=== PATIENT | male | born 1960 | race Hispanic/Latino ===

== ENCOUNTER 2018-05-25 08:13 | Emergency (ER) | payer OTHER ==
--- NOTE | 2018-05-25 08:35 | EDPHYS ---
Physician Documentation [facility] Name: Colton Huang Age: 58 yrs Sex: Male : 1960 Arrival Date: 05/25/2018 Time: 08:19 Bed 16 Private MD: None, None ED Physician Crow Dowling HPI: 05/25 08:30 This 58 yrs old Male presents to ER via Ambulatory with complaints of Arm jmm Pain, Back Pain. 08:30 The patient or guardian complains of pain, a rash. The complaints affect the posterior jmm aspect of left shoulder. Onset: The symptoms/episode began/occurred gradually, 4 day(s) ago. Associated signs and symptoms: Pertinent positives: pain, Pertinent negatives: fever. The patient has not experienced similar symptoms in the past. This is a 58 year old male with a history of htn that presents to the ED with left upper back/shoulder pain beginning approx 4 days ago. Patient denies fever, denies chest pain or shortness of breath. . Historical: - Allergies: 08:25 No Known Allergies; rb1 - Home Meds: 08:25 lovastatin 20 mg Oral tab [Active]; losartan 50 mg oral tab 1 tab once daily [Active]; rb1 - PMHx: 08:25 Diabetes - NIDDM; Hyperlipidemia; Hypertension; rb1 - PSHx: 08:25 Appendectomy; rb1 - Immunization history:: Adult Immunizations up to date. - Social history:: Smoking status: Patient uses tobacco products, chewing tobacco. - Ebola Screening: : Patient negative for fever greater than or equal to 101.5 degrees Fahrenheit, and additional compatible Ebola Virus Disease symptoms. ROS: 08:30 Constitutional: Negative for fever, chills, and weight loss, Cardiovascular: Negative jmm for chest pain, palpitations, and edema, Respiratory: Negative for shortness of breath, cough, wheezing, and pleuritic chest pain. 08:30 Skin: Positive for rash. 08:30 Neuro: Negative for weakness. 08:30 All other systems are negative. Exam: 08:30 Constitutional: This is a well developed, well nourished patient who is awake, alert, jmm and in no acute distress. Head/Face: atraumatic. Chest/axilla: Normal chest wall appearance and motion. Cardiovascular: Regular rate and rhythm. No edema appreciated Respiratory: Normal respirations, no respiratory distress appreciated Back: Normal ROM 08:30 Skin: vesicular lesions noted to the left upper back/posterior shoulder. . 08:30 Neuro: Orientation: is normal, Mentation: is normal, Memory: is normal, Gait: is steady. Vital Signs: 08:25 BP 148 / 90; Pulse 73; Resp 19; Temp 97.5(O); Pulse Ox 99% on R/A; Weight 111.58 kg rb1 (M); Height 5 ft. 10 in. (177.80 cm) (R); Pain 8/10; 08:25 Body Mass Index 35.30 (111.58 kg, 177.80 cm) rb1 MDM: 08:30 ED course: Patient's symptoms appear consistent with herpes zoster. Patient has no [facility] chest pain, shortness of breath, denies fever. Patient is alert and non toxic in appearance in the ED. Patient will be prescribed oral antiviral medication and is advised to follow up with his PCP. Patient understood and agrees with the plan of care. . 08:[address] [facility] 08:33 Data reviewed: vital signs, nurses notes. Counseling: I had a detailed discussion with edna the patient and/or guardian regarding: the historical points, exam findings, and any diagnostic results supporting the discharge/admit diagnosis, the need for outpatient follow up, to return to the emergency department if symptoms worsen or persist or if there are any questions or concerns that arise at home. Administered Medications: No medications were administered Disposition: 05/25/18 08:34 Discharged to Home. Impression: Zoster [herpes zoster]. - Condition is Stable. - Discharge Instructions: Shingles. - Prescriptions for Tylenol- Codeine #3 300-30 mg Oral Tablet - take 1 tablet by ORAL route every 6 hours As needed; 20 tablet. Valtrex 1 g Oral Tablet - take 1 tablet by ORAL route every 8 hours for 7 days; 21 tablet. - Work release form, Medication Reconciliation Form, Thank You Letter, Antibiotic Education, Prescription Opioid Use form. - Follow up: Private Physician; When: 2 - 3 days; Reason: Continuance of care. Addendum: 05/26/2018 21:27 Co-signature as Attending Physician, Crow chun a2 Signatures: Tono Jane PA PA jmm Barber, Rebecca RN RN rb1 Crow Dowling MD MD ma2 Corrections: (The following items were deleted from the chart) 05/25 08:50 08:34 05/25/2018 08:34 Discharged to Home. Impression: Zoster [herpes zoster]. rb1 Condition is Stable. Forms are Medication Reconciliation Form, Thank You Letter, Antibiotic Education, Prescription Opioid Use. Follow up: Private Physician; When: 2 - 3 days; Reason: Continuance of care. edna
--- NOTE | 2018-05-25 08:35 | ER ---
Nurse's Notes [facility] Name: Colton Huang Age: 58 yrs Sex: Male : 1960 Arrival Date: 05/25/2018 Time: 08:19 Bed 16 Private MD: None, None Diagnosis: Zoster [herpes zoster] Presentation: 05/25 08:25 Presenting complaint: Patient states: burning pain to L upper arm and axilla area that ss began 4-5 days ago. Transition of care: patient was not received from another setting of care. Onset of symptoms was May 21, 2018. Initial Sepsis Screen: Does the patient meet any 2 criteria? Does the patient have a suspected source of infection? No. Patient's initial sepsis screen is negative. Care prior to arrival: None. 08:25 Method Of Arrival: Ambulatory ss 08:25 Risk Assessment: Do you want to hurt yourself or someone else? Patient reports no rb1 desire to harm self or others. 08:25 Acuity: JAMIL 4 rb1 Triage Assessment: 08:25 General: Appears uncomfortable, obese, Behavior is calm, cooperative, Denies fever. rb1 Pain: Complains of pain in posterior aspect of left shoulder Pain currently is 8 out of 10 on a pain scale. Pain began May 21, 2018. Neuro: Level of Consciousness is awake, alert, obeys commands, Oriented to person, place, time, situation. Cardiovascular: Capillary refill < 3 seconds is brisk in bilateral fingers. Respiratory: Airway is patent Respiratory effort is even, unlabored, Respiratory pattern is regular, symmetrical. GI: No signs and/or symptoms were reported involving the gastrointestinal system. : No signs and/or symptoms were reported regarding the genitourinary system. Derm: Rash noted that is red, raised. Musculoskeletal: Range of motion: intact in all extremities. Historical: - Allergies: 08:25 No Known Allergies; rb1 - Home Meds: 08:25 lovastatin 20 mg Oral tab [Active]; losartan 50 mg oral tab 1 tab once daily [Active]; rb1 - PMHx: 08:25 Diabetes - NIDDM; Hyperlipidemia; Hypertension; rb1 - PSHx: 08:25 Appendectomy; rb1 - Immunization history:: Adult Immunizations up to date. - Social history:: Smoking status: Patient uses tobacco products, chewing tobacco. - Ebola Screening: : Patient negative for fever greater than or equal to 101.5 degrees Fahrenheit, and additional compatible Ebola Virus Disease symptoms. Screenin:25 Abuse screen: Denies threats or abuse. Nutritional screening: No deficits noted. rb1 Tuberculosis screening: No symptoms or risk factors identified. Fall Risk None identified. Assessment: 08:25 General: See triage assessment. Neuro: Level of Consciousness is awake, alert, obeys rb1 commands, Oriented to person, place, time, situation. Vital Signs: 08:25 BP 148 / 90; Pulse 73; Resp 19; Temp 97.5(O); Pulse Ox 99% on R/A; Weight 111.58 kg rb1 (M); Height 5 ft. 10 in. (177.80 cm) (R); Pain 8/10; 08:25 Body Mass Index 35.30 (111.58 kg, 177.80 cm) rb1 ED Course: 08:19 Patient arrived in ED. sb2 08:20 None, None is Private Physician. sb2 08:23 Mimi Butterfield, RN is Primary Nurse. rb1 08:24 Tono Jane PA is PHCP. [facility] 08:24 Crow Dowling MD is Attending Physician. [facility] 08:25 Arm band placed on right wrist. rb1 08:25 Patient has correct armband on for positive identification. Placed in gown. Bed in low rb1 position. Call light in reach. Side rails up X 1. Pulse ox on. NIBP on. 08:37 Triage completed. rb1 08:49 No provider procedures requiring assistance completed. Patient did not have IV access rb1 during this emergency room visit. Administered Medications: No medications were administered Outcome: 08:34 Discharge ordered by . [facility] 08:49 Discharged to home ambulatory. rb1 08:49 Condition: stable 08:49 Discharge instructions given to patient, Instructed on discharge instructions, follow up and referral plans. medication usage, Demonstrated understanding of instructions, follow-up care, medications, Prescriptions given X 2. 08:50 Patient left the ED. rb1 Signatures: Tono Jane PA PA jmm Smirch, Shelby, RN RN Mimi Butterfield, RN RN [facility] Arianna Marino sb2
[2018-05-25 08:54] VITALS: BP 148/90; TEMP 97.5; O2SAT 99
== END 2018-05-25 08:50 | disposition home or self-care (01) ==
LOC: ER 08:13
DX: B02.9 Zoster without complications (principal); E11.9 Type 2 diabetes mellitus without complications
CPT/HCPCS: 99283

== ENCOUNTER 2018-05-31 12:23 | Emergency (ER) | payer OTHER ==
--- NOTE | 2018-05-31 13:25 | EDPHYS ---
Physician Documentation [facility] Name: Colton Huang Age: 58 yrs Sex: Male : 1960 Arrival Date: 05/31/2018 Time: 12:26 Bed 9 Private MD: None, None ED Physician Charlie Gonzalez HPI: 05/31 15:03 This 58 yrs old Male presents to ER via Ambulatory with complaints of Shingles.jr8 15:03 Patient recently diagnosed with shingles about 1 week ago. Still having burning jr8 irritating pain that is not improving. Wants to know if there is anything else we can do for pain so he can go back to work . Severity of symptoms: At their worst the symptoms were mild in the emergency department the symptoms are unchanged. The patient has not experienced similar symptoms in the past. The patient has been recently seen by a physician:. Historical: - Allergies: 12:55 NKA; iw - PMHx: 12:55 Diabetes - NIDDM; Hyperlipidemia; Hypertension; iw - PSHx: 12:55 Appendectomy; iw - Immunization history:: Adult Immunizations unknown. - Ebola Screening: : Patient negative for fever greater than or equal to 101.5 degrees Fahrenheit, and additional compatible Ebola Virus Disease symptoms Patient denies exposure to infectious person Patient denies travel to an Ebola-affected area in the 21 days before illness onset No symptoms or risks identified at this time. - Social history:: Smoking status: unknown. ROS: 15:03 Eyes: Negative for injury, pain, redness, and discharge, ENT: Negative for injury, jr8 pain, and discharge, Neck: Negative for injury, pain, and swelling, Cardiovascular: Negative for chest pain, palpitations, and edema, Respiratory: Negative for shortness of breath, cough, wheezing, and pleuritic chest pain, Abdomen/GI: Negative for abdominal pain, nausea, vomiting, diarrhea, and constipation, Back: Negative for injury and pain, MS/Extremity: Negative for injury and deformity, Neuro: Negative for headache, weakness, numbness, tingling, and seizure. 15:03 Skin: Positive for rash. Exam: 15:03 Eyes: Pupils equal round and reactive to light, extra-ocular motions intact. Lids and jr8 lashes normal. Conjunctiva and sclera are non-icteric and not injected. Cornea within normal limits. Periorbital areas with no swelling, redness, or edema. ENT: Nares patent. No nasal discharge, no septal abnormalities noted. Tympanic membranes are normal and external auditory canals are clear. Oropharynx with no redness, swelling, or masses, exudates, or evidence of obstruction, uvula midline. Mucous membranes moist. Neck: Trachea midline, no thyromegaly or masses palpated, and no cervical lymphadenopathy. Supple, full range of motion without nuchal rigidity, or vertebral point tenderness. No Meningismus. Cardiovascular: Regular rate and rhythm with a normal S1 and S2. No gallops, murmurs, or rubs. Normal PMI, no JVD. No pulse deficits. Respiratory: Lungs have equal breath sounds bilaterally, clear to auscultation and percussion. No rales, rhonchi or wheezes noted. No increased work of breathing, no retractions or nasal flaring. Abdomen/GI: Soft, non-tender, with normal bowel sounds. No distension or tympany. No guarding or rebound. No evidence of tenderness throughout. Back: No spinal tenderness. No costovertebral tenderness. Full range of motion. MS/ Extremity: Pulses equal, no cyanosis. Neurovascular intact. Full, normal range of motion. Neuro: Awake and alert, GCS 15, oriented to person, place, time, and situation. Cranial nerves II-XII grossly intact. Motor strength 5/5 in all extremities. Sensory grossly intact. Cerebellar exam normal. Normal gait. 15:03 Skin: rash a mild rash is noted, rash can be described as vesicular, consistent with zoster, on the left lateral chest and back. Vital Signs: 12:55 BP 138 / 87; Pulse 62; Resp 16; Pulse Ox 96% ; iw MDM: 12:58 Patient medically screened. jr8 13:22 Data reviewed: vital signs, nurses notes, and as a result, I will discharge patient. jr8 Data interpreted: Pulse oximetry: on room air is 96 %. Interpretation: normal. Counseling: I had a detailed discussion with the patient and/or guardian regarding: the historical points, exam findings, and any diagnostic results supporting the discharge/admit diagnosis, the need for outpatient follow up, a family practitioner, to return to the emergency department if symptoms worsen or persist or if there are any questions or concerns that arise at home. 13:22 ED course: Detailed discussion with patient that what he is feeling is postherpetic jr8 neuralgia. Will put on gabapentin for pain. Will still need to f/u with doctor . Administered Medications: No medications were administered Disposition: 16:10 Co-signature as Attending Physician, Charlie Gonzalez MD. rn Disposition: 05/31/18 13:24 Discharged to Home. Impression: Postherpetic Neuragia . - Condition is Stable. - Discharge Instructions: Postherpetic Neuralgia. - Prescriptions for gabapentin 300 mg Oral capsule - take 1 capsule by ORAL route Day 1 then 1 capsule BID on day 2, then one one capsule TID for 2 weeks; 45 capsule. - Medication Reconciliation Form, Thank You Letter, Antibiotic Education, Prescription Opioid Use form. - Work release form (05/31/18 13:39). bd - Follow up: Private Physician; When: 10 - 14 days; Reason: Recheck today's complaints, Continuance of care, Re-evaluation by your physician. - Problem is new. - Symptoms have improved. Signatures: Trinity Tuttle RN RN iw Charlie Gonzalez MD MD rn Roszak, Josh, PA PA jr8 Danika Denis bd Corrections: (The following items were deleted from the chart) 13:36 13:24 05/31/2018 13:24 Discharged to Home. Impression: Postherpetic Neuragia . iw Condition is Stable. Forms are Medication Reconciliation Form, Thank You Letter, Antibiotic Education, Prescription Opioid Use. Follow up: Private Physician; When: 10 - 14 days; Reason: Recheck today's complaints, Continuance of care, Re-evaluation by your physician. Problem is new. Symptoms have improved. jr8
--- NOTE | 2018-05-31 13:25 | ER ---
Nurse's Notes [facility] Name: Colton Huang Age: 58 yrs Sex: Male : 1960 Arrival Date: 05/31/2018 Time: 12:26 Bed 9 Private MD: None, None Diagnosis: Postherpetic Neuragia Presentation: 05/31 12:55 Presenting complaint: Patient states: shingles to left shoulder, started last iw Saturday. Transition of care: patient was not received from another setting of care. Onset of symptoms was May 2018. Risk Assessment: Do you want to hurt yourself or someone else? Patient reports no desire to harm self or others. Initial Sepsis Screen: Does the patient meet any 2 criteria? No. Patient's initial sepsis screen is negative. Does the patient have a suspected source of infection? No. Patient's initial sepsis screen is negative. Care prior to arrival: None. 12:55 Method Of Arrival: Ambulatory iw 12:55 Acuity: JAMIL 4 iw Historical: - Allergies: 12:55 NKA; iw - PMHx: 12:55 Diabetes - NIDDM; Hyperlipidemia; Hypertension; iw - PSHx: 12:55 Appendectomy; iw - Immunization history:: Adult Immunizations unknown. - Ebola Screening: : Patient negative for fever greater than or equal to 101.5 degrees Fahrenheit, and additional compatible Ebola Virus Disease symptoms Patient denies exposure to infectious person Patient denies travel to an Ebola-affected area in the 21 days before illness onset No symptoms or risks identified at this time. - Social history:: Smoking status: unknown. Screenin:06 Abuse screen: Denies threats or abuse. Denies injuries from another. Nutritional iw screening: No deficits noted. Tuberculosis screening: No symptoms or risk factors identified. Fall Risk None identified. Assessment: 13:06 General: Appears in no apparent distress. Behavior is calm, cooperative. Pain: iw Complains of pain in anterior aspect of left shoulder and posterior aspect of left shoulder. Neuro: Level of Consciousness is awake, alert, obeys commands, Oriented to person, place, time, situation. 13:24 Derm: Rash noted that is on left arm and posterior aspect of left shoulder and anterior iw aspect of left shoulder. Vital Signs: 12:55 BP 138 / 87; Pulse 62; Resp 16; Pulse Ox 96% ; iw ED Course: 12:26 Patient arrived in ED. mr 12:26 None, None is Private Physician. mr 12:55 Triage completed. iw 12:58 [facility] jr8 12:58 Charlie Gonzalez MD is Attending Physician. jr8 13:05 Trinity Tuttle, RN is Primary Nurse. iw 13:07 Patient has correct armband on for positive identification. iw 13:08 Arm band placed on. iw 13:35 No provider procedures requiring assistance completed. Patient did not have IV access iw during this emergency room visit. Administered Medications: No medications were administered Outcome: 13:24 Discharge ordered by . jr8 13:35 Discharged to home ambulatory. iw 13:35 Condition: good 13:35 Discharge instructions given to patient, Instructed on discharge instructions, follow up and referral plans. medication usage, Demonstrated understanding of instructions, follow-up care, medications, Prescriptions given X 1. 13:36 Patient left the ED. iw Signatures: Myranda Guthrie mr Trinity Tuttle, RN RN iw Robbie Diaz PA PA jr8
[2018-05-31 13:40] VITALS: BP 138/87; O2SAT 96
== END 2018-05-31 13:36 | disposition home or self-care (01) ==
LOC: ER 12:23
DX: B02.29 Other postherpetic nervous system involvement (principal); E11.9 Type 2 diabetes mellitus without complications; E78.5 Hyperlipidemia, unspecified; I10 Essential (primary) hypertension
CPT/HCPCS: 99281